=== PATIENT | male | born 1960 | race Caucasian/White ===

== ENCOUNTER → 2018-03-25 | Outpatient (CLI) | payer BC ==
--- NOTE | 2018-03-25 08:28 | RAD ---
Exam:Left ribs with PA chest Date: 03/25/2018 7:54 AM Comparison: No prior Indication: LEFT RIB PAIN, FELL IN JULY OR AUGUST Findings/ Impression: The heart is not enlarged. Mediastinal and hilar contours are normal. No focal parenchymal airspace opacity. No pleural effusion or pneumothorax. AP, Oblique and Spot images of the left ribs are negative for acute displaced rib fracture. Negative focal pleural elevation. Symmetrical intercostal spacing. Costochondral calcifications are incidentally seen. It is of note that an acute non-displaced rib fracture can be in-apparent on initial post-trauma imaging. Electronically signed by: Shemar Muniz MD (03/25/2018 8:25 AM) [id number]
== END | disposition home or self-care (01) ==
LOC: DXRAD 07:41
PROVIDERS: ATTEND Physician Assistant Medical
DX: R07.89 Other chest pain (principal); Z91.81 History of falling
CPT/HCPCS: 71101